=== PATIENT | male | born 1980 | race Caucasian/White ===

== ENCOUNTER 2019-10-18 11:39 | Emergency (ER) | payer SELFPAY ==
[2019-10-18 11:53] VITALS: BP 144/88; PULSE 88; TEMP 99; BMI 30.8
[2019-10-18] MEDS ORDERED: IBUPROFEN 600 MG TABLET (FP) PO ONE ×2 (12:05→12:12)
--- NOTE | 2019-10-18 12:05 | PDOC ---
History of Present Illness - General Chief Complaint: Pain, Acute Stated Complaint: left arm pain Time Seen by Provider: 10/18/19 11:47 History Source: Patient Exam Limitations: No Limitations - History of Present Illness Initial Comments: 10/18/19 12:05 HPI: This is a healthy 39 y/o male with no reported PMH presenting to the ED due to 3 days of left elbow pain. The day prior he had been carrying a lot of heavy boxes. There was no trauma to the arm, and the pain did not begin until the next day. The pain is not present without movement, but he cannot bend his left elbow past 90 degrees without pain. He denies any numbness/tingling or loss of sensation to left arm or hand. Patient reports that he is left handed. ROS: GENERAL/CONSTITUTIONAL: No fever/chills. No weakness. CARDIOVASCULAR: No chest pain or shortness of breath. RESPIRATORY: No cough, wheezing, or hemoptysis. GASTROINTESTINAL: No nausea, vomiting MUSCULOSKELETAL: Yes pain to left elbow and forearm with flexion. SKIN: No rash NEUROLOGIC: No headache, vertigo, loss of consciousness, or change in strength/sensation. PMH: Denied PSx: Denied Social Hx: Denied Meds: Denied Allergies: Denied PE: GENERAL: Awake, alert, and fully oriented, in no acute distress HEAD: No signs of trauma NECK: Normal ROM, supple, no lymphadenopathy, JVD, or masses LUNGS: Breath sounds equal, clear to auscultation bilaterally. No wheezes, and no crackles HEART: Regular rate and rhythm, normal S1 and S2, no murmurs, rubs or gallops. Radial pulses equal bilaterally. EXTREMITIES: Decreased ROM in L. elbow due to pain. Strength and sensation to left hand and arm intact. No clubbing or cyanosis. No cords, erythema, or tenderness NEUROLOGICAL: Cranial nerves II through XII grossly intact. Normal speech, normal gait SKIN: Warm, Dry, normal turgor, no rashes or lesions noted. MDM: 10/19/19 10:31 This is a healthy 39 y/o male with no reported PMH presenting to the ED due to 3 days of left elbow pain. The day prior he had been carrying a lot of heavy boxes. There was no trauma to the arm. - Pain only with active motion. No pain with passive - No trauma so fracture unlikely. Pain did not start until next day - Most likely l. lateral epicondylitis - Will advise Motrin and follow-up with PCP Past History - Medical History Allergies/Adverse Reactions: Allergies Allergy/AdvReac Type Severity Reaction Status Date / Time No Known Allergies Allergy Verified 10/18/19 11:53 Home Medications: Ambulatory Orders NK [No Known Home Medication] 10/18/19 COPD: No - Psycho-Social/Smoking History Smoking History: Current every day smoker Have you smoked in the past 12 months: Yes Number of Cigarettes Smoked Daily: 3 Information on smoking cessation initiated: No - Substance Abuse Hx (Audit-C & DAST Scrn) How often the patient has a drink containing alcohol: Monthly or less Number of drinks the patient has on a typical day: 1 or 2 How often the patient has six or more drinks on one occasion: Never Score: In Men: 4 or > Positive; In Women: 3 or > Positive: 1 Screen Result (Pos requires Nsg. Audit-10AR): Negative In the last yr the pt used illegal drug/Rx for NonMed reason: No Score: Yes response is considered Positive: 0 Screen Result (Positive result requires Nsg. DAST-10): Negative *Physical Exam - Vital Signs Last Vital Signs Temp Pulse Resp BP Pulse Ox 99 F 88 20 144/88 99 10/18/19 11:41 10/18/19 11:41 10/18/19 11:41 10/18/19 11:41 10/18/19 11:41 Discharge - Discharge Information Problems reviewed: Yes Clinical Impression/Diagnosis: Elbow pain, left Lateral epicondylitis of elbow Qualifiers: Laterality: left Qualified Code(s): M77.12 - Lateral epicondylitis, left elbow Condition: Stable Disposition: HOME - Admission No - Follow up/Referral Referrals: [facility] [Provider Group] - Patient Discharge Instructions Patient Printed Discharge Instructions: DI for Lateral Epicondylitis (Tennis Elbow) Additional Instructions: You were seen in the emergency department for left elbow pain. Home Care and Follow Up: - You may use over the counter medications as needed for pain at home. 600mg ibuprofen (Motrin or Advil) can be used every 6-8 hours. - It is strongly recommended that you take ibuprofen with food to help prevent stomach irritation. If you are taking it for more than a day or two, you may consider taking an acid medication such as Pepcid, available over the counter, to protect your stomach. This should be taken first thing in the morning 30-60 minutes before any food or medications. - You may buy a numbing patch that contains lidocaine (the patch is 4% lidocaine) that can be placed over the areas of greatest pain. The lidocaine patch may be placed for 12 hours then removed for 12 hours. - Try using an ice pack for 20 minutes every hour or a heating pad for additional pain control. These should NOT be used over the lidocaine patch, but you may place them over the areas of pain while the patch is off. - Do not stop moving around. As much as you can tolerate, continue to do light exercise and stretching exercises. Increase your activity level as much as you can tolerate daily. - If your pain does not improve over the next week, you have been referred to the [facility] for follow up. - Seek immediate medical care if you have significant worsening of your symptoms. - Post Discharge Activity
--- NOTE | 2019-10-18 12:13 | PDOC ---
Attending Attestation - Resident Resident Name: Deepa Colon - ED Attending Attestation I have performed the following: I have examined & evaluated the patient, The case was reviewed & discussed with the resident, I agree w/resident's findings & plan, Exceptions are as noted - HPI HPI: 10/18/19 12:08 39 yo M L hand dominant p/w L elbow and forearm pain 3 days after lifting heavy boxes. Denies any direct trauma. No numbness or weakness. Reports pain is worst near his elbow and pain is exacerbated with movement and flexion at elbow. Did not take any medication for pain prior to arrival today. - Physicial Exam PE: 10/18/19 12:10 General: well appearing HEENT: NCAT, mmm Extremities: warm and well perfused, +radial pulses, no ttp, flexion/extension/pronation/supination intact, hand flavor tank tender intact, sensation intact to light touch, no increased warmth erythema or deformities - Medical Decision Making 10/18/19 12:11 39 yo M with likely L lateral epicondylitis, neurovascularly intact, no bony tenderness or direct trauma to suggest fx. Plan: -motrin -d/c with return precautions and recommendation for NSAIDs and supportive care at home, referred to PMD for f/u This clinical encounter is taking place during a federal and state health care emergency attributable to the novel [place]ae[place] Virus pandemic. The [employer] of the Department of Health and Human Services has declared, pursuant to the Public Health Service Act 319F-3 (42 U.S[place]C. 247d-6d), that a covered persons activities related to medical countermeasures against COVID-19 will be immune from liability under Federal and State law. Discharge - Discharge Information Problems reviewed: Yes Clinical Impression/Diagnosis: Lateral epicondylitis of elbow Qualifiers: Laterality: left Qualified Code(s): M77.12 - Lateral epicondylitis, left elbow - Follow up/Referral - Patient Discharge Instructions - Post Discharge Activity
== END 2019-10-18 12:41 | disposition home or self-care (01) ==
LOC: FER 11:39
DX: M25.522 Pain in left elbow (principal); M77.12 Lateral epicondylitis, left elbow
CPT/HCPCS: 99283-25